=== PATIENT | female | born 2000 | race African-American/Black ===

== ENCOUNTER 2023-08-17 16:45 | Emergency (ER) | payer OTHER ==
[~2023-08-17] VITALS: Ht 167.6 cm; Wt 106.1 kg
[2023-08-17 16:49] VITALS: BP 150/91; PULSE 76; RESP 17; TEMP 98; O2SAT 100
[2023-08-17 16:55] VITALS: BP 150/91; PULSE 93; RESP 17; TEMP 98; O2SAT 100
[2023-08-17] MEDS ORDERED: LID5T TP (17:30)
[2023-08-17] MEDS ORDERED: NAPR-337 PO (17:30)
[2023-08-17] MEDS ORDERED: CYCL-711 PO (17:30)
[2023-08-17] MEDS: LIDOCAINE 5% 1 EA PATCH TP ONE (17:33)
[2023-08-17] MEDS: KETOROLAC 30 MG/ML VIAL IM ONE (17:34)
[2023-08-17] MEDS: HYDROcodone/APAP 5/325 MG 1 TAB TAB PO ONE (18:10)
== END 2023-08-17 18:37 | disposition home or self-care (01) ==
LOC: MED 16:45
DX: S16.1XXA Strain of muscle, fascia and tendon at neck level, initial encounter (principal); X58.XXXA Exposure to other specified factors, initial encounter; Y93.89 Activity, other specified; Y92.89 Other specified places as the place of occurrence of the external cause; Y99.8 Other external cause status
CPT/HCPCS: 81002; 81025; 96372; 99283; J1885